=== PATIENT | female | born 1995 | race Hispanic/Latino ===

== ENCOUNTER → 2023-12-24 | Outpatient (REF) | payer OTHER ==
[2023-12-24 12:50] LABS: BASO % 0.3 % (0.0-1.0); EOS # 0.1 10^3/uL (0.0-0.5); EOS % 0.8 % (0.0-3.0); HEMATOCRIT 44.6 % (36.0-47.0); HEMOGLOBIN 14.8 g/dl (12.0-15.5); LYMPH # 1.8 10^3/uL (1.5-5.0); LYMPH % 29.7 % (24.0-44.0); MEAN CORPUSCULAR HEMOGLOBIN 30.5 pg (27.0-33.0); MEAN CORPUSCULAR HGB CONC 33.2 g/dl (32.0-36.5); MEAN CORPUSCULAR VOLUME 91.8 fl (80.0-96.0); MONO # 0.5 10^3/uL (0.0-0.8); MONO % 8.5 % (2.0-8.0); NEUTROPHILS # 3.6 10^3/uL (1.5-8.5); NEUTROPHILS % 60.5 % (36.0-66.0); PLATELET COUNT, AUTOMATED 218 10^3/uL (150-450); RED BLOOD COUNT 4.86 10^6/uL (4.00-5.40); WHITE BLOOD COUNT 5.9 10^3/uL (4.0-10.0)
[2023-12-24 12:52] LABS: THYROID STIMULATING HORMONE 2.059 uIU/ML (0.55-4.78)
[2023-12-24 12:53] LABS: ALKALINE PHOSPHATASE 102 U/L (46-116); ALT/SGPT 38 U/L (7.0-40); AST/SGOT 23 U/L (<34); BILIRUBIN,TOTAL 0.6 MG/DL (0.3-1.2); BLOOD UREA NITROGEN 12 MG/DL (9-23); CALCIUM LEVEL 9.5 MG/DL (8.5-10.1); CARBON DIOXIDE LEVEL 26 MMOL/L (20-31); CHLORIDE LEVEL 107 MMOL/L (98-107); CHOLESTEROL LEVEL 147 MG/DL (<200); CHOLESTEROL RISK RATIO 3.13 (<5); CREATININE FOR GFR 0.67 MG/DL (0.55-1.30); GLOMERULAR FILTRATION RATE > 60.0 (>60); GLUCOSE, FASTING 90 MG/DL (60-100); HDL CHOLESTEROL 46.9 MG/DL (>40); LDL CHOLESTEROL 86.5 MG/DL (<100); NON-HDL-C 100.1 MG/DL; POTASSIUM SERUM 4.5 MMOL/L (3.5-5.1); SODIUM LEVEL 137 MMOL/L (136-145); TOTAL PROTEIN 7.1 G/DL (5.7-8.2); TRIGLYCERIDES LEVEL 68 MG/DL (<150)
[2023-12-24 12:54] LABS: TOTAL 25(OH) VITAMIN D 26.8 NG/ML (20.0-100.0)
== END ==
LOC: M LAB REF 11:37
PROVIDERS: ATTEND Nurse Practitioner Family
DX: E55.9 Vitamin D deficiency, unspecified (principal); E66.3 Overweight; Z11.9 Encounter for screening for infectious and parasitic diseases, unspecified; Z86.2 Personal history of diseases of the blood and blood-forming organs and certain disorders involving the immune mechanism

== ENCOUNTER 2024-04-11 12:53 | Emergency (ER) | payer OTHER ==
[~2024-04-11] VITALS: Ht 157.5 cm; Wt 73.2 kg
[2024-04-11 12:57] VITALS: BP 140/91; TEMP 99.3; O2SAT 97
[2024-04-11] MEDS ORDERED: ALBU2.5V10 INH (13:19)
[2024-04-11] MEDS: predniSONE 20 MG TAB PO ONE (16:52)
[2024-04-11] MEDS: IPRATROPIUM 0.5MG/ALBUTEROL 2.5MG INH SOL UD 3ML (DUONEB) NEB ONE (16:53)
[2024-04-11] MEDS ORDERED: VENTAER INH (17:38)
[2024-04-11] MEDS ORDERED: PRED20TA PO (17:38)
== END 2024-04-11 17:58 | disposition home or self-care (01) ==
LOC: M ED 12:53
DX: J45.901 Unspecified asthma with (acute) exacerbation (principal); B34.1 Enterovirus infection, unspecified; J45.909 Unspecified asthma, uncomplicated; D64.9 Anemia, unspecified; Z88.6 Allergy status to analgesic agent; Z79.52 Long term (current) use of systemic steroids; Z79.2 Long term (current) use of antibiotics
CPT/HCPCS: 87486; 87581; 87633; 87798; 94640; 99284; J7512

== ENCOUNTER 2024-04-13 09:28 | Emergency (ER) | payer OTHER ==
[~2024-04-13] VITALS: Ht 157.5 cm; Wt 70.1 kg
[~2024-04-13 09:28] MED LIST: ALBU2.5V10 INH; PRED20TA PO; VENTAER INH
[2024-04-13] MEDS: IPRATROPIUM 0.5MG/ALBUTEROL 2.5MG INH SOL UD 3ML (DUONEB) NEB ONE (11:51)
[2024-04-13] MEDS ORDERED: IPRA0.00 NEB (12:25)
[2024-04-13] MEDS ORDERED: AMOX875T2 PO (12:25)
[2024-04-13] MEDS: methylPREDNISolone 125MG 2ML VIAL IM ONE (12:46)
[2024-04-13 12:58] VITALS: BP 120/69; TEMP 98.7; O2SAT 100
== END 2024-04-13 13:00 | disposition home or self-care (01) ==
LOC: M ED 09:28
DX: J20.9 Acute bronchitis, unspecified (principal); J45.909 Unspecified asthma, uncomplicated; Z88.6 Allergy status to analgesic agent; Z79.52 Long term (current) use of systemic steroids; Z79.2 Long term (current) use of antibiotics
CPT/HCPCS: 71045; 94640; 96372; 99283; J2919

== ENCOUNTER 2024-11-10 11:29 | Emergency (ER) | payer OTHER ==
[~2024-11-10] VITALS: Ht 160 cm; Wt 81.4 kg
[~2024-11-10 11:29] MED LIST changes: +AMOX875T2 PO; +IPRA0.00 NEB
[2024-11-10 12:20] LABS: BASO # 0.0 10^3/uL (0.0-0.2); BASO % 0.7 % (0.0-1.0); EOS # 0.0 10^3/uL (0.0-0.5); EOS % 0.7 % (0.0-3.0); LYMPH # 2.2 10^3/uL (1.5-5.0); LYMPH % 41.0 % (24.0-44.0); MONO # 0.6 10^3/uL (0.0-0.8); MONO % 10.1 % (2.0-8.0); NEUTROPHILS # 2.6 10^3/uL (1.5-8.5); NEUTROPHILS % 47.1 % (36.0-66.0); PLATELET COUNT, AUTOMATED 321 10^3/uL (150-450)
[2024-11-10 12:31] LABS: CK-MB VALUE MASS 2.7 NG/ML (<3.6)
[2024-11-10 12:34] LABS: ALT/SGPT 46 U/L (7.0-40); AST/SGOT 26 U/L (<34); CALCIUM LEVEL 9.6 MG/DL (8.5-10.1); CARBON DIOXIDE LEVEL 30 MMOL/L (20-31); CHLORIDE LEVEL 102 MMOL/L (98-107); CREATININE FOR GFR 0.64 MG/DL (0.55-1.30); GLOMERULAR FILTRATION RATE > 90.0 (>60); POTASSIUM SERUM 4.8 MMOL/L (3.5-5.1); SODIUM LEVEL 139 MMOL/L (136-145)
[2024-11-10 12:36] LABS: FREE T4 1.13 NG/DL (0.89-1.76)
[2024-11-10 12:41] LABS: CPK CREATINE PHOSPHOKINASE 183 U/L (34-145); MB/CK RELATIVE INDEX 1.47 (< OR =4)
[2024-11-10 12:58] LABS: HCG, SERUM QUALITATIVE NEGATIVE (NEGATIVE)
[2024-11-10 16:35] VITALS: BP 126/88; TEMP 97.7; O2SAT 100
== END 2024-11-10 17:15 | disposition home or self-care (01) ==
LOC: M ED 11:29
DX: R07.9 Chest pain, unspecified (principal); J45.909 Unspecified asthma, uncomplicated; D64.9 Anemia, unspecified; Z88.6 Allergy status to analgesic agent; Z79.52 Long term (current) use of systemic steroids

== ENCOUNTER 2024-12-08 11:48 | Emergency (ER) | payer OTHER ==
[~2024-12-08] VITALS: Ht 162.6 cm; Wt 78.0 kg
[2024-12-08] MEDS: ALBUTEROL 90 MCG/ACT 8 GM HFA INHALER INH ONE (15:14)
[2024-12-08] MEDS: ACETAMINOPHEN 500 MG TAB PO ONE (15:45)
[2024-12-08 16:24] LABS: RSV AMPLIFICATION NEGATIVE (NEGATIVE)
[2024-12-08 18:00] VITALS: BP 141/69; TEMP 97.4; O2SAT 97
[2024-12-08 18:10] LABS: GC DNA AMPLIFICATION NEGATIVE (NEGATIVE)
== END 2024-12-08 18:25 | disposition home or self-care (01) ==
LOC: M ED 11:48
DX: R51.9 Headache, unspecified (principal); N89.9 Noninflammatory disorder of vagina, unspecified; Z88.6 Allergy status to analgesic agent; Z79.52 Long term (current) use of systemic steroids